=== PATIENT | male | born 1980 | race African-American/Black ===

== ENCOUNTER 2021-01-05 11:04 | Emergency (ER) | payer OTHER ==
[~2021-01-05] VITALS: Ht 177.8 cm; Wt 113.4 kg
[2021-01-05] MEDS ORDERED: SUPER THERAVIT1 EACH PO (12:01)
[2021-01-05] MEDS ORDERED: CLARITIN10 MG PO (12:01)
[2021-01-05] MEDS ORDERED: ASA81BEC PO (12:01)
[2021-01-05] MEDS ORDERED: VITAMIN D350 MC3 PO (12:01)
[2021-01-05] MEDS ORDERED: NORVASC10 MG PO (12:01)
[2021-01-05] MEDS ORDERED: METFORMIN HCL500 M3 PO (12:02)
[2021-01-05] MEDS ORDERED: DEPAKOTE 250MG250 MG PO (12:02)
[2021-01-05] MEDS ORDERED: ZINC-22050 MG PO (12:02)
[2021-01-05] MEDS ORDERED: LIPITOR 20 MG T20 M1 PO (12:03)
[2021-01-05] MEDS ORDERED: DESYREL150 MG PO (12:03)
[2021-01-05] MEDS ORDERED: OLANZAPINE5 M1 PO (12:03)
[2021-01-05 17:15] LABS: URINE BILIRUBIN NEGATIVE (Negative); URINE BLOOD NEGATIVE (Negative); URINE CLARITY CLEAR; URINE COLOR YELLOW; URINE GLUCOSE-RANDOM* 3+ (Negative); URINE KETONES NEGATIVE (Negative); URINE LEUKOCYTES-REFLEX NEGATIVE (Negative); URINE NITRITE-REFLEX NEGATIVE (Negative); URINE PROTEIN (DIPSTICK) NEGATIVE (Negative); URINE SPECIFIC GRAVITY 1.025 (1.005-1.035)
[2021-01-05 18:33] VITALS: BP 136/82
== END 2021-01-05 18:30 | disposition home or self-care (01) ==
LOC: ER 11:04
PROVIDERS: Emergency Medicine
DX: K62.89 Other specified diseases of anus and rectum (principal); I10 Essential (primary) hypertension; Z79.82 Long term (current) use of aspirin; Z79.899 Other long term (current) drug therapy; Z88.8 Allergy status to other drugs, medicaments and biological substances